=== PATIENT | female | born 1990 | race Asian ===

== ENCOUNTER → 2018-05-02 09:38 | Outpatient (CLI) | payer OTHER, SELFPAY ==
[2018-05-02 11:21] LABS: Add Manual Diff / Slide Review NO; Basophils Percent Auto 0.3 % (0-2); Eosinophils Percent Auto 1.1 % (2-4); Hematocrit 34.9 % (36-46); Hemoglobin 12.2 g/dL (12.0-16.0); Lymphocytes Percent Auto 16.5 % (25-40); Mean Corpuscular Hemoglobin 30.1 PG (26-34); Mean Corpuscular Volume 85.8 fL (80-100); Monocytes Percent Auto 7.3 % (3-14); Neutrophils Absolute Auto 5900 /uL (3000-5900); Neutrophils Percent Auto 74.8 % (50-75); Platelet Count 118 X10^3/uL (150-400); Red Blood Cell Count 4.06 X10^6/uL (4.0-5.2); Red Cell Distribution Width 12.2 % (11.6-14.8); White Blood Cell Count 7.9 X10^3/uL (4.5-11.0)
[2018-05-02 11:48] LABS: GTT (PREG) 1 Hour PP 50gm Dose 101 mg/dL (76-139)
== END ==
PROVIDERS: Family Provider Family Medicine; Visit Provider Family Medicine
DX: O21.9 Vomiting of pregnancy, unspecified (principal); Z3A.26 26 weeks gestation of pregnancy
CPT/HCPCS: 82950; 85025

== ENCOUNTER → 2018-06-26 09:19 | Outpatient (CLI) | payer OTHER, SELFPAY ==
[2018-06-27 14:31] LABS: Strep Grp B PCR NEG for Grp B Strep
== END ==
PROVIDERS: Family Provider Family Medicine; Visit Provider Family Medicine
DX: Z34.83 Encounter for supervision of other normal pregnancy, third trimester (principal)
CPT/HCPCS: 87653

== ENCOUNTER 2018-07-25 12:48 | Inpatient (IN) | payer OTHER, SELFPAY ==
--- NOTE | 2018-07-25 15:05 | PM.OBTRLD ---
[facility] Social History number of children: 1 household members: spouse, children and other pets and animals: No education level: high school occupational status: unemployed paradise/temple: Congregational Saint / Caodaism seatbelt use: always helmet use: Yes water heater temp set < 120 deg: Yes working smoke detector in home: Yes fire extinguisher in home: Yes carbon monox detector in home: Yes firearms in home: No Smoking Status: Never smoker alcohol intake: never during the past year weight has: remained stable well-balanced diet: daily or most days daily servings fruits/ve-4 caffeine: No eating out: 1-3 times/week frequency: 1-2 times per week duration: 45-60 minutes/day additional social history: Soda/pop beverage: Never
[2018-07-25 15:33] VITALS: BP 110/74
[2018-07-25 15:53] LABS: Add Manual Diff / Slide Review NO; Basophils Percent Auto 0.3 % (0-2); Eosinophils Percent Auto 0.7 % (2-4); Hematocrit 36.5 % (36-46); Hemoglobin 12.1 g/dL (12.0-16.0); Lymphocytes Percent Auto 12.5 % (25-40); Mean Corpuscular Hemoglobin 24.9 PG (26-34); Mean Corpuscular Volume 75.4 fL (80-100); Monocytes Percent Auto 7.4 % (3-14); Neutrophils Absolute Auto 8200 /uL (3000-5900); Neutrophils Percent Auto 79.1 % (50-75); Platelet Count 150 X10^3/uL (150-400); Red Blood Cell Count 4.85 X10^6/uL (4.0-5.2); Red Cell Distribution Width 16.2 % (11.6-14.8); White Blood Cell Count 10.4 X10^3/uL (4.5-11.0)
--- NOTE | 2018-07-25 16:52 | PM.OBHP.1 ---
OB HPI Date/Time Date of admission: 07/25/18 Date Patient Seen: 07/25/18 Time Patient Seen: 13:00 History of Present Condition Chief complaint: OBSERVATION OF LABOR : 2 Para: 1 Estimated Date of Delivery: 07/24/18 Estimated Gestational Age (weeks): 40w1d Narrative: Eusebia Germain is a 28 year old at 40w1d who presented in latent labor. The pt reports having contractions starting yesterday evening, increasing in frequency and intensity since then. No LOF or vaginal bleeding. Indications Indication for induction OB: maternal discomfort History of Present care: good care Dating criteria: LMP confirmed by 1st trimester US Ultrasounds: normal mid trimester US Obstetrical complications: none Medical complications: none Preadmission Labs Blood type: A (+) positive -: Antibody screen: negative, GBS status: negative, HBsAG: negative, HIV: negative and RPR/VDLR: negative -: Rubella: immune and Varicella: not immune HCT: 34.9 1 hr GTT: 101 Prior (ies) History: at 40 wks, 04/24/2012. 6lb female baby. Evaluation Evaluation Baseline heart rate: 135 Variability: Moderate (11-25) monitor accelerations: Present monitor decelerations: Absent Contraction Frequency (minutes): 6 Category of Tracing: I Cervical dilation (cm): 4 Cervical effacement (%): 80 station: -2 Laboratory results: Laboratory Tests 07/25/18 15:20 WBC 10.4 RBC 4.85 Hgb 12.1 Hct 36.5 MCV 75.4 L MCH 24.9 L MCHC 33.0 RDW 16.2 H Plt Count 150 Neut % (Auto) 79.1 H Lymph % (Auto) 12.5 L [place] % (Auto) 7.4 Eos % (Auto) 0.7 L Baso % (Auto) 0.3 Neut # (Auto) 8200 H Comments: After informed consent, AROM was performed with production of clear fluid. [facility] Surgical History No history of previous surgery (Resolved 12/2017) Social History number of children: 1 household members: spouse, children and other pets and animals: No education level: high school occupational status: unemployed paradise/yazidi: Caodaism Saint / Adventist seatbelt use: always helmet use: Yes water heater temp set < 120 deg: Yes working smoke detector in home: Yes fire extinguisher in home: Yes carbon monox detector in home: Yes firearms in home: No Smoking Status: Never smoker alcohol intake: never during the past year weight has: remained stable well-balanced diet: daily or most days daily servings fruits/ve-4 caffeine: No eating out: 1-3 times/week frequency: 1-2 times per week duration: 45-60 minutes/day additional social history: Soda/pop beverage: Never Meds Home Medications Medication Instructions Recorded Confirmed Type No Known Home Medications 07/25/18 07/25/18 History Allergies Allergy/AdvReac Type Severity Reaction Status Date / Time No Known Allergies Allergy Uncoded 06/12/18 11:06 Review of Systems Review of Systems All systems reviewed & are unremarkable except as noted in HPI and below Exam Vital Signs (past 8 hours): - 07/25/18 15:33 Blood Pressure 110/74 Narrative Exam Narrative: Gen: NAD, sitting comfortably on bench, appears well CV: RRR Resp: clear to auscultation bialterally Abd: soft, gravid, appropriately tender Ext: no edema Objective Labs Result Diagrams: 07/25/18 15:20 Labs: Laboratory Results - last 24 hr 07/25/18 15:20 WBC 10.4 RBC 4.85 Hgb 12.1 Hct 36.5 MCV 75.4 L MCH 24.9 L MCHC 33.0 RDW 16.2 H Plt Count 150 Neut % (Auto) 79.1 H Lymph % (Auto) 12.5 L [place] % (Auto) 7.4 Eos % (Auto) 0.7 L Baso % (Auto) 0.3 Neut # (Auto) 8200 H Assessment and Plan (1) 40 weeks gestation of : Current visit: Yes Status: Acute 28yo at 40w1d who presented in latent labor, with minimal 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 Due to maternal discomfort, AROM was performed to help progress labor with production of clear fluid. GBS negative, Rh positive. - Expectant management, anticipate - GBS negative, no antibiotics indicated - FHT reassuring - Epidural for pain control if pt desires
--- NOTE | 2018-07-25 16:56 | P.HPOB_ITS ---
OB HPI Date/Time Date of admission: 07/25/18 Date Patient Seen: 07/25/18 Time Patient Seen: 13:00 History of Present Condition Chief complaint: OBSERVATION OF LABOR : 2 Para: 1 Estimated Date of Delivery: 07/24/18 Estimated Gestational Age (weeks): 40w1d Narrative: Eusebia Germain is a 28 year old at 40w1d who presented in latent labor. The pt reports having contractions starting yesterday evening, increasing in frequency and intensity since then. No LOF or vaginal bleeding. Indications Indication for induction OB: maternal discomfort History of Present care: good care Dating criteria: LMP confirmed by 1st trimester US Ultrasounds: normal mid trimester US Obstetrical complications: none Medical complications: none Preadmission Labs Blood type: A (+) positive -: Antibody screen: negative, GBS status: negative, HBsAG: negative, HIV: negative and RPR/VDLR: negative -: Rubella: immune and Varicella: not immune HCT: 34.9 1 hr GTT: 101 Prior (ies) History: at 40 wks, 04/24/2012. 6lb female baby. Evaluation Evaluation Baseline heart rate: 135 Variability: Moderate (11-25) monitor accelerations: Present monitor decelerations: Absent Contraction Frequency (minutes): 6 Category of Tracing: I Cervical dilation (cm): 4 Cervical effacement (%): 80 station: -2 Laboratory results: Laboratory Tests 07/25/18 15:20 WBC 10.4 RBC 4.85 Hgb 12.1 Hct 36.5 MCV 75.4 L MCH 24.9 L MCHC 33.0 RDW 16.2 H Plt Count 150 Neut % (Auto) 79.1 H Lymph % (Auto) 12.5 L [place] % (Auto) 7.4 Eos % (Auto) 0.7 L Baso % (Auto) 0.3 Neut # (Auto) 8200 H Comments: After informed consent, AROM was performed with production of clear fluid. [facility] Surgical History No history of previous surgery (Resolved 12/2017) Social History number of children: 1 household members: spouse, children and other pets and animals: No education level: high school occupational status: unemployed paradise/amish: [employer] Saint / Baptist seatbelt use: always helmet use: Yes water heater temp set < 120 deg: Yes working smoke detector in home: Yes fire extinguisher in home: Yes carbon monox detector in home: Yes firearms in home: No Smoking Status: Never smoker alcohol intake: never during the past year weight has: remained stable well-balanced diet: daily or most days daily servings fruits/ve-4 caffeine: No eating out: 1-3 times/week frequency: 1-2 times per week duration: 45-60 minutes/day additional social history: Soda/pop beverage: Never Meds Home Medications Medication Instructions Recorded Confirmed Type No Known Home Medications 07/25/18 07/25/18 History Allergies Allergy/AdvReac Type Severity Reaction Status Date / Time No Known Allergies Allergy Uncoded 06/12/18 11:06 Review of Systems Review of Systems All systems reviewed & are unremarkable except as noted in HPI and below Exam Vital Signs (past 8 hours): - 07/25/18 15:33 Blood Pressure 110/74 Narrative Exam Narrative: Gen: NAD, sitting comfortably on bench, appears well CV: RRR Resp: clear to auscultation bialterally Abd: soft, gravid, appropriately tender Ext: no edema Objective Labs Result Diagrams: 07/25/18 15:20 Labs: Laboratory Results - last 24 hr 07/25/18 15:20 WBC 10.4 RBC 4.85 Hgb 12.1 Hct 36.5 MCV 75.4 L MCH 24.9 L MCHC 33.0 RDW 16.2 H Plt Count 150 Neut % (Auto) 79.1 H Lymph % (Auto) 12.5 L [place] % (Auto) 7.4 Eos % (Auto) 0.7 L Baso % (Auto) 0.3 Neut # (Auto) 8200 H Assessment and Plan (1) 40 weeks gestation of : Current visit: Yes Status: Acute 28yo at 40w1d who presented in latent labor, with minimal cervical change of address clerk several hours. Due to maternal discomfort, AROM was performed to help progress labor with production of clear fluid. GBS negative, Rh positive. - Expectant management, anticipate - GBS negative, no antibiotics indicated - FHT reassuring - Epidural for pain control if pt desires
[2018-07-25] MEDS: LACTATED RINGERS 1,000 ML 999 ML IV (17:35)
[2018-07-25] MEDS: LACTATED RINGERS 1,000 ML 125 ML IV (18:36)
--- NOTE | 2018-07-25 19:41 | P.PCNOB_ITS ---
Delivery date: 07/25/18 Intrapartal events: None Induction method: AROM Delivery monitor: external FHT Route of delivery: Episiotomy description: None Laceration description: Perineal - 2nd Degree Delivery repair: chromic Estimated blood loss (mL): 250 Anesthesia type: Epidural Narrative: PROCEDURE: at 40w1d presented in latent labor and was admitted to Labor and Delivery. AROM was performed with production of clear fluid. The patient progressed through the 1st stage over 2.5 hours. Pain was controlled with an epidural. The patient progressed through the 2nd stage over 30 minutes and delivered a viable female with APGARs 8/9 at 19:13 via . The perineum and vagina were inspected with small 2nd degree laceration repaired with 2-O Chromic. PREPROCEDURE DIAGNOSIS: Intrauterine at 40w1d GBS negative RH positive POSTPROCEDURE DIAGNOSIS: Intrauterine at 40w1d, delivered Same as preprocedure ROM APPEARANCE: Clear BABY A WEIGHT: [id number] BABY A NUCHAL CORD: x1, reduced at perineum PLACENTA DELIVERY TIME: 19:18 PLACENTA APPEARANCE: Intact [place] Baby 1: gender: Female Presentation: vertex position: Right Occiput Anterior Placenta delivery description: Spontaneous cord vessel description: 3 Vessels score (1 min): 8 score (5 min): 9 Plan for aftercare: Normal care support
[2018-07-25] MEDS: IBUPROFEN 600 MG TABLET PO (20:40)
[2018-07-25] MEDS: DERMOPLAST SPRAY 20% 60 ML 1 SPRAY TOP (23:45)
[2018-07-26] MEDS: OXYCODONE/ACETAMINOPHEN 5/325 TABLET 1 TAB PO ×2 (01:49→18:40)
--- NOTE | 2018-07-26 08:44 | P.DS_ITS ---
Discharge Providers Date of admission: 07/25/18 12:48 Consults: 07/25/18 20:15 Consult to Bottom Stop Attacher Routine Comment: Discharge provider: Gingre Smith MD Summary Date Patient Seen: 07/26/18 Time Patient Seen: 08:00 Hospital Course: The patient was admitted in latent labor with minimal cervical change. AROM was performed with production of clear fluid. The patient then progressed rapidly. She received an epidural for pain control. She had a spontaneous vaginal delivery of a 6 lb 14 oz viable baby girl at 7:13 p.m. on 07/25/2018. A small 2nd degree laceration was then repaired. , there were no complications. The patient was voiding, ambulating, and passing flatus without difficulty at the time of discharge. Her lochia was decreasing appropriately. Her pain was adequately controlled. She was breast feeding with good latch. Patient will follow up in clinic in 6 weeks for her check. She is undecided regarding control. Peripartum Data Delivery Method: Natural Vaginal Laceration description: Perineal - 2nd Degree Episiotomy description: None Procedures: Spontaneous vaginal delivery complications: none Discharge Diagnosis (1) 40 weeks gestation of : Status: Acute (2) (spontaneous vaginal delivery): Status: Acute Status at Discharge Functional status at discharge: independent ambulation Overall status at discharge: patient is progressing back to baseline Time Spent with Patient Total time spent providing and/or coordinating discharge services: Greater than 30 minutes Specific discharge activities: No intercourse for 6 weeks Objective Labs Result Diagrams: 07/25/18 15:20 Labs: Laboratory Results - last 24 hr 07/25/18 07/25/18 15:20 15:20 WBC 10.4 RBC 4.85 Hgb 12.1 Hct 36.5 MCV 75.4 L MCH 24.9 L MCHC 33.0 RDW 16.2 H Plt Count 150 Neut % (Auto) 79.1 H Lymph % (Auto) 12.5 L [place] % (Auto) 7.4 Eos % (Auto) 0.7 L Baso % (Auto) 0.3 Neut # (Auto) 8200 H Blood Type A Positive Antibody Screen Negative Discharge Plan Discharge Plan Patient Disposition: Home Discharge Med Rec/Prescriptions Prescriptions: New acetaminophen 325 mg Tablet 650 mg PO Q6HR PRN (Reason: Pain, Mild (1-3)) Qty: 30 RF: 0 benzocaine-menthol [Dermoplast (with menthol)] 20-0.5 % Aerosol 1 spray Topical Q1HR PRN (Reason: perineal pain) Qty: 15 RF: 0 ibuprofen 600 mg Tablet 600 mg PO Q6HR PRN (Reason: Pain, Mild (1-3)) Qty: 30 RF: 0 docusate sodium 250 mg Capsule 250 mg PO DAILY Qty: 30 RF: 0 lanolin [Epi-D-Ebxrhs] Cream 1 applic Topical PRN PRN (Reason: Tenderness) Qty: 15 RF: 0 [id number] [Prenatabs Rx] 29 mg iron- 1 mg Tablet 1 tab PO DAILY Qty: 30 RF: 0 Follow up/Referrals: Ginger Smith MD [Family Provider] - 6 Weeks Provider Discharge Instructions Diet: Regular Activity: No intercourse for 6 weeks Skin/Wound/Dressing Care Report to your healthcare provider any signs of infection, such as:: chills, fever, increased pain and unusual drainage Visit Report/Discharge Packet Instructions: DI for Labor and Delivery, Vaginal Discharge Data Attending Provider: Ginger Smith Admit Date/Time: 07/25/18 12:48
[2018-07-26] MEDS: DOCUSATE 250 MG CAPSULE PO (09:30)
[2018-07-26] MEDS: PRENATAL VIT,CALC/IRON/FOLIC 1 TABLET 1 TAB PO (09:30)
[2018-07-26] MEDS: IBUPROFEN 600 MG TABLET PO (15:36)
[2018-07-26 17:57] VITALS: BP 101/61; PULSE 76; RESP 16; TEMP 37.3
== END 2018-07-26 19:05 | disposition home or self-care (01) | DRG 775 ==
PROVIDERS: Admitting Provider Family Medicine; Family Provider Family Medicine; Visit Provider Family Medicine
DX: O75.81 Maternal exhaustion complicating labor and delivery (principal); Z3A.40 40 weeks gestation of pregnancy; Z37.0 Single live birth; O69.81X0 Labor and delivery complicated by cord around neck, without compression, not applicable or unspecified; O70.1 Second degree perineal laceration during delivery
CPT/HCPCS: 01967; 59050; 59400; 85025; 86850; 86900; 86901; G0379; J3010

== ENCOUNTER → 2022-12-19 14:00 | Outpatient (CLI) | payer OTHER, SELFPAY ==
[2022-12-20 11:33] LABS: Strep Grp B PCR NEG for Grp B Strep
== END ==
PROVIDERS: Family Provider Family Medicine; Visit Provider Obstetrics & Gynecology
DX: Z34.83 Encounter for supervision of other normal pregnancy, third trimester (principal); Z3A.36 36 weeks gestation of pregnancy
CPT/HCPCS: 87653

== ENCOUNTER → 2022-12-19 14:04 | Outpatient (CLI) | payer OTHER, SELFPAY ==
[2022-12-19 14:37] LABS: Add Manual Diff / Slide Review NO; Basophils Absolute Auto 0 /uL (0-100); Basophils Percent Auto 0.3 % (0-2); Eosinophils Absolute Auto 100 /uL (0-450); Eosinophils Percent Auto 0.9 % (2-4); Hematocrit 34.8 % (36-46); Hemoglobin 11.4 g/dL (12.0-16.0); Lymphocytes Absolute Auto 1200 /uL (1100-4500); Lymphocytes Percent Auto 15.7 % (25-40); Mean Corpuscular HGB Conc 32.7 % (30-36); Mean Corpuscular Hemoglobin 24.2 PG (26-34); Mean Corpuscular Volume 73.9 fL (80-100); Monocytes Absolute Auto 600 /uL (0-900); Monocytes Percent Auto 7.8 % (3-14); Neutrophils Absolute Auto 5900 /uL (1500-7000); Neutrophils Percent Auto 75.3 % (50-75); Platelet Count 129 X10^3/uL (150-400); Red Blood Cell Count 4.71 X10^6/uL (4.0-5.2); Red Cell Distribution Width 17.1 % (11.6-14.8); White Blood Cell Count 7.8 X10^3/uL (4.5-11.0)
--- NOTE | 2023-01-08 22:00 | PM.CALLCOV.1 ---
Call Coverage Note Note Date of Patient Contact: 01/08/23 Time of Patient Contact: 22:00 Narrative of Care Provided: Marciano called in for Eusebia to report that she's been having contractions all day. Now they are every 5 minutes lasting for 10 seconds. Baby moving well and denies loss of fluid. After discussion, will wait at home longer.
== END ==
PROVIDERS: Family Provider Family Medicine; Referring Provider Obstetrics & Gynecology; Visit Provider Obstetrics & Gynecology
DX: O99.119 Other diseases of the blood and blood-forming organs and certain disorders involving the immune mechanism complicating pregnancy, unspecified trimester (principal); D69.6 Thrombocytopenia, unspecified; Z3A.36 36 weeks gestation of pregnancy
CPT/HCPCS: 36415; 85025; 87653

== ENCOUNTER 2023-01-09 03:37 | Inpatient (IN) | payer OTHER, SELFPAY ==
--- NOTE | 2023-01-09 04:10 | PM.OBHP.IH.1 ---
OB HPI Date/Time Date of admission: 01/09/23 Date Patient Seen: 01/09/23 Time Patient Seen: 04:00 History of Present Condition Chief complaint: LABOR LINDSEY Calculator Estimated Delivery Date Method Current WG Current Estimate 01/12/23 Ultrasound #1 39w 4d Other Estimates 01/22/23 LMP (Certain) 38w 1d 01/12/23 Manual 39w 4d Estimated Gestational Age (weeks): 39 : 3 Para: 2 Narrative: Eusebia has been laboring at home for a while, now things are stronger, so she wanted to come in for evaluation. Excited to meet her son and NOT be in labor any more. Thinks he's bigger than his sisters - they were each 6 lb babies. care: good care, initiated at week # (11), number of visits (10) and pounds weight gain (38) Dating criteria OB: based on 1st trimester US only Ultrasounds: normal 1st trimester US and normal mid trimester US Abnormal ultrasound findings: Transferred in late to OB; had only 4 visits here but delivered her last baby here. Obstetrical complications: gestational diabetes (A1) Medical complications OB: other (depression) Preadmission Labs Last OB Lab Results: Blood Type A Positive 07/25/18 15:20 Antibody Screen Negative 07/25/18 15:20 Hematocrit 34.8 % (36-46) L 12/19/22 14:11 Hemoglobin 11.4 g/dL (12.0-16.0) L 12/19/22 14:11 Hepatitis B Surface Antigen NEGATIVE S/C (NEGATIVE-) 01/01/18 11:42 Hepatitis C Antibody NEGATIVE S/C (NEGATIVE-) 01/01/18 11:42 Varicella-Zoster IgG Antibody < 135.00 Index (< 135.00-) 01/01/18 11:42 Glucose 1 Hour 101 mg/dL (76-139) 05/02/18 10:46 Group B Streptococcus (PCR) Neg for grp b strep 12/19/22 14:00 Prior (ies) Past Pregnancies Del. Date GA/Weeks Labor Lgth Wt Sex Route Outcome Anesthesia Place Delv Breastfeed Preg Comp Name 04/24/12 38 8 2.863 kg Female vaginal live - full term [place] 18 months none Claudette Huggins 07/25/18 40 6 2.722 kg Female vaginal live - full term epidural IH 1 month (supply dried out) none Brigitte Evaluation Evaluation Baseline heart rate: 125 Variability: Moderate (11-25) monitor accelerations: Present Monitor Decelerations: Absent Contraction Frequency (minutes): 3 Uterine Contraction Intensity: Moderate Category of Tracing: Reactive Status: Category l Dilation (cm): 4 Effacement (%): 90 Dilation: 3-4 cm Effacement: >/=80% station: -2 Position of cervix: mid Consistency: soft Rojas score: 9 PFSH Medical History (Updated 01/08/23 @ 15:59 by Sobia Gutiérrez MD) Depression Surgical History (Updated 10/05/22 @ 10:14 by Emmy Weber RN) [place] teeth extracted Social History marital status: number of children: 2 household members: spouse, children and other lives independently: Yes housing: house pets and animals: Yes education level: high school occupational status: unemployed current occupational exposures/hazards: No paradise/worship: [employer] / Anabaptism special paradise needs: No travel history: recent (Domestic move in 3rd trimester) and over 6 months ago seatbelt use: always helmet use: Yes water heater temp set < 120 deg: Yes working smoke detector in home: Yes fire extinguisher in home: Yes carbon monox detector in home: Yes firearms in home: No do you feel safe at home: Yes Smoking Status: Never smoker second hand exposure: No alcohol intake: never substance use type: does not use during the past year weight has: remained stable well-balanced diet: daily or most days daily servings fruits/ve-4 caffeine: No eating out: 1-3 times/week Type(s) of exercise: none frequency: 1-2 times per week duration: 45-60 minutes/day additional social history: Soda/pop beverage: Never Meds Home Medications and Allergies Home Medications Medication Instructions Recorded Confirmed Type vitamin 1 tab PO DAILY #30 tabs 07/26/18 01/03/23 Rx no.76-iron,carbonyl 29 mg iron-folic acid 1 mg tablet (Prenatabs Rx) escitalopram oxalate 20 mg tablet 20 mg PO DAILY 10/05/22 01/03/23 History (Lexapro) famotidine 10 mg tablet (Pepcid AC) 10 mg PO DAILY 10/05/22 01/03/23 History ondansetron 4 mg disintegrating 4 mg PO Q6H PRN 10/05/22 01/03/23 History tablet pyridoxine (vitamin B6) 100 mg 100 mg PO DAILY 10/05/22 01/03/23 History tablet Allergies Allergy/AdvReac Type Severity Reaction Status Date / Time No Known Drug Allergies Allergy Verified 01/03/23 09:44 Review of Systems Review of Systems Narrative: negative except as mentioned in HPI OB Exam Vital signs Blood Pressure: 120/77 Pulse Rate: 96 Respiratory Rate: 18 Temperature: 35.9 F HENMT Head: normal to inspection and normocephalic Eyes General: appearance normal, both eyes and all related structures Resp Effort & Inspection: normal respiratory effort and able to speak in complete sentences Cardio Rate: regular rate Rhythm: regular rhythm Extremities Lower extremity: Yes normal to inspection; No edema GI Other: Gravid, EFW 7 lbs External Female Exam: Yes normal external appearance Presentation: vertex Estimated Weight (lbs): 7 Amniotic Fluid: other (intact membranes) Other: Bulging bag felt on exam. Assessment and Plan Assessment and Plan Assessment and Plan narrative: 32 year old at 39w4d FHR Cat 1 GBS neg Rh positive Early labor Plan: Admit to L&D. Epidural as desired Typical admission labs and IV in place Anticipate Time Spent with Patient Total time spent with greater than 50% in coordination of care (as documented) at patient's floor/unit and/or counseling patient:: 15-24 minutes
[2023-01-09 04:26] LABS: Add Manual Diff / Slide Review NO; Basophils Absolute Auto 0 /uL (0-100); Basophils Percent Auto 0.4 % (0-2); Eosinophils Absolute Auto 100 /uL (0-450); Eosinophils Percent Auto 0.6 % (2-4); Hematocrit 34.8 % (36-46); Hemoglobin 11.4 g/dL (12.0-16.0); Lymphocytes Absolute Auto 1700 /uL (1100-4500); Lymphocytes Percent Auto 16.5 % (25-40); Mean Corpuscular HGB Conc 32.7 % (30-36); Mean Corpuscular Hemoglobin 23.4 PG (26-34); Mean Corpuscular Volume 71.7 fL (80-100); Monocytes Absolute Auto 700 /uL (0-900); Monocytes Percent Auto 7.2 % (3-14); Neutrophils Absolute Auto 7600 /uL (1500-7000); Neutrophils Percent Auto 75.3 % (50-75); Platelet Count 124 X10^3/uL (150-400); Red Blood Cell Count 4.86 X10^6/uL (4.0-5.2); Red Cell Distribution Width 18.2 % (11.6-14.8); White Blood Cell Count 10.1 X10^3/uL (4.5-11.0)
[2023-01-09 04:29] VITALS: BP 120/77; PULSE 96; RESP 18; TEMP 2.2; TEMP 35.9
[2023-01-09 04:32] VITALS: BP 120/77
[2023-01-09] MEDS: ePHEDrine 50 MG/ML VIAL IV (08:38)
--- NOTE | 2023-01-09 10:08 | PM.OBPNLAB ---
Date/Time Date Patient Seen: 01/09/23 Time Patient Seen: 06:30 Pain Control Pain control: epidural Pelvic Exam Effacement (%): 90 station: -2 Amniotic membrane status: Intact Contractions Date/Time contractions began: Contractions started early Monday. Increased in intensity Monday, and became long and strong in the early hours. Contractions on admission: regular Monitor mode: External Contraction frequency (min): 3 Contraction duration (min): 60 Contraction pattern: Regular Contraction intensity: Moderate Status status: Category l Heart Rate Baseline: 130 Monitor Accelerations: Present Monitor Decelerations: Absent Monitor Variability: Moderate Assessment and Plan Assessment: active labor Plan: continuous present management Comments: in active labor GBS neg Rh pos FHR Cat 1, green Plan: AROM for clear fluid at 0746 Begin pushing when Eusebia feels pressure Anticipate
--- NOTE | 2023-01-09 10:17 | PM.OBPRVD ---
Events: Gestational Diabetes Labor & Delivery Delivery date: 01/09/23 Intrapartal Events: Deceleration Delivery augmentation: rupture of membranes Delivery monitor: external FHT Route of delivery: Episiotomy description: None L&D Laceration Description: None Quantitative Blood Loss: 255 Anesthesia Type: Epidural Complications: none Narrative: Eusebia felt the urge to push shortly after SVE of 9 cm. Requested AROM, which was done at 0746. Clear fluid. Pressure became more intense and she was feeling rectal pressure, which she did not enjoy, so anesthesia came and gave an add to improve her comfort. She pushed in R sidelying, L sidelying and then on her back to eventually deliver the vertex OA between pushes. Shoulders were transverse, and with gentle traction and maternal effort, delivered into the waiting hands of Marciano, who placed a vigorous baby boy onto Eusebia's abdomen. Apgars 7/9. Breathing but not crying at 1 minute. Cord clamped by CNZhen and cut approx 10 minutes later by big sister, Claudette. Spontaneous delivery of placenta with one push. Perineum inspected and found to be intact. Bleeding moderate; QBL 255 mL. Eusebia and Marciano are thrilled to meet their son, Rahul. Birthweight pending at the time of this note. Eusebia and both mom and baby are stable. Baby 1: gender: Male Presentation: vertex Position: Right Occiput Transverse Placenta delivery description: Spontaneous Cord Vessel Description: 3 Vessels score (1 min): 8 score (5 min): 9 Plan for aftercare: Routine care
[2023-01-09] MEDS: IBUPROFEN 600 MG TABLET PO ×3 (11:20→23:38)
[2023-01-09] MEDS: ACETAMINOPHEN 325 MG TABLET 650 MG PO ×3 (11:20→23:38)
[2023-01-09] MEDS: ESCITALOPRAM 10 MG TABLET 20 MG PO (11:20)
[2023-01-10 02:32] VITALS: BP 106/72; PULSE 102; RESP 17; TEMP 36.7
[2023-01-10] MEDS: ACETAMINOPHEN 325 MG TABLET 650 MG PO (05:43)
[2023-01-10] MEDS: IBUPROFEN 600 MG TABLET PO (05:43)
[2023-01-10] MEDS: PRENATAL VIT,CALC/IRON/FOLIC 1 TABLET 1 TAB PO (09:40)
[2023-01-10] MEDS: ESCITALOPRAM 10 MG TABLET 20 MG PO (10:53)
== END 2023-01-10 12:00 | disposition home or self-care (01) | DRG 807 ==
PROVIDERS: Admitting Provider Advanced Practice Midwife; Family Provider Family Medicine; Referring Provider Advanced Practice Midwife; Visit Provider Advanced Practice Midwife
DX: O24.420 Gestational diabetes mellitus in childbirth, diet controlled (principal); O76 Abnormality in fetal heart rate and rhythm complicating labor and delivery; Z37.0 Single live birth; Z3A.39 39 weeks gestation of pregnancy; O99.344 Other mental disorders complicating childbirth; F32.A Depression, unspecified
CPT/HCPCS: 36415; 59050; 85025; 86850; 86900; 86901; G0379

== ENCOUNTER → 2024-01-19 16:54 | Outpatient (CLI) | payer OTHER, SELFPAY ==
[2024-01-19 17:18] LABS: Add Manual Diff / Slide Review NO; Basophils Absolute Auto 0 /uL (0-100); Basophils Percent Auto 0.7 % (0-2); Eosinophils Absolute Auto 100 /uL (0-450); Eosinophils Percent Auto 1.9 % (2-4); Hematocrit 38.9 % (36-46); Hemoglobin 12.9 g/dL (12.0-16.0); Lymphocytes Absolute Auto 1800 /uL (1100-4500); Lymphocytes Percent Auto 33.6 % (25-40); Mean Corpuscular HGB Conc 33.2 % (30-36); Mean Corpuscular Hemoglobin 26.3 PG (26-34); Monocytes Absolute Auto 300 /uL (0-900); Monocytes Percent Auto 5.5 % (3-14); Neutrophils Absolute Auto 3100 /uL (1500-7000); Neutrophils Percent Auto 58.3 % (50-75); Platelet Count 156 X10^3/uL (150-400); Red Blood Cell Count 4.92 X10^6/uL (4.0-5.2); White Blood Cell Count 5.3 X10^3/uL (4.5-11.0)
[2024-01-19 17:48] LABS: Hemoglobin A1C% w Est Avg Glu 4.9 % (4.0-6.0)
[2024-01-19 17:49] LABS: Alanine Aminotransferase 13 IU/L (<35); Albumin Globulin Ratio 1.3 (1.0-2.8); Alkaline Phosphatase 44 U/L (38-126); Aspartate Aminotransferase 19 IU/L (14-36); BUN Creatinine Ratio 30.4 (6-22); Bilirubin Total 0.4 mg/dL (0.2-1.3); Blood Urea Nitrogen 21 mg/dL (7-17); Carbon Dioxide 22 mmol/L (22-32); Chloride 107 mmol/L (98-107); Cholesterol 146 mg/dL (140-199); Estimated Glomerular Filt Rate > 60 mL/min (>60); Globulin 3.2 g/dL (1.7-4.1); Glucose 92 mg/dL (70-100); HDL Cholesterol 41 mg/dL (40-60); HEMOLYSIS < 15 (0-50); LDL Cholesterol Calculated 91 mg/dL (<100); Potassium 3.6 mmol/L (3.4-5.1); Sodium 138 mmol/L (137-145); Total Protein 7.2 g/dL (6.3-8.2); Triglycerides 69 mg/dL (35-150)
[2024-01-19 18:18] LABS: Ferritin 7 ng/mL (6-137)
== END ==
PROVIDERS: Family Provider Family Medicine; PCP Family Medicine; Referring Provider Family Medicine; Visit Provider Family Medicine
DX: Z00.00 Encounter for general adult medical examination without abnormal findings (principal); O24.419 Gestational diabetes mellitus in pregnancy, unspecified control; D50.9 Iron deficiency anemia, unspecified; R10.9 Unspecified abdominal pain
CPT/HCPCS: 36415; 80053; 80061; 82728; 83036; 85025

== ENCOUNTER 2024-01-26 16:44 | Emergency (ER) | payer OTHER, SELFPAY ==
[2024-01-26 16:45] VITALS: BP 117/77; PULSE 79; RESP 16; TEMP 36.6; O2SAT 100; BMI 28.1
--- NOTE | 2024-01-26 17:27 | ED_ITS ---
<Statement entered by Atif Arango MD - 01/26/24 18:13> I was available for consultation for this patient while they were in the ER but not consulted. My review of this note is my first interaction with this patient. HPI - Back Pain/Injury General Chief Complaint: Back Pain/Injury Stated Complaint: back pain Time Seen by Provider: 01/26/24 16:55 Source: patient History of Present Illness HPI Narrative: This is a 33-year-old female presents emergency department due to back pain, acute on chronic onset earlier this morning. 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 Reports some tingling and ?warm sensation? to her left upper extremity. Denies any severe numbness or weakness. States that she also has chronic paresthesias down her bilateral lower extremities. No injuries. No fevers. No saddle paresthesias. No urinary or bowel incontinence. Related Data Previous Rx's Medication Instructions Recorded escitalopram oxalate 20 mg tablet 20 mg PO DAILY #90 tabs 11/10/23 (Lexapro) norgestimate 0.25 mg-ethinyl 1 tab PO DAILY #28 tabs 11/10/23 estradiol 35 mcg tablet cyclobenzaprine 10 mg tablet 10 mg PO TID #30 tabs 01/26/24 Allergies Allergy/AdvReac Type Severity Reaction Status Date / Time No Known Drug Allergies Allergy Verified 01/19/24 16:01 Review of Systems Review of Systems Narrative: GENERAL: Denies chills, fatigue, malaise, fever, sweats. HEENT: Denies sinus pain, ear pain, sore throat, difficulty swallowing, dizziness. RESPIRATORY: Denies dyspnea, cough, wheezing, hemoptysis, sputum. CARDIOVASCULAR: Denies chest pain, palpitations, orthopnea, edema, GASTROINTESTINAL: Denies nausea, vomiting, abdominal pain, diarrhea, constipation, melena. : Denies dysuria, frequency, incontinence, hematuria, urinary retention. MUSCULOSKELETAL: Reports back pain denies weakness, joint pain, or bony pain SKIN: Denies rash, skin lesions, or other NEUROLOGIC: Reports occasional paresthesias to the left upper extremity Denies weakness, headache, numbness, change in speech, confusion, seizures, i ncoordination. PSYCHIATRIC: No concerning psychosocial issues. 12 point review of systems is negative except for those stated above Patient History Medical History (Updated 01/26/24 @ 17:59 by Salo Davis PA-C) Vision disorder PTSD (post-traumatic stress disorder) Anxiety Insomnia Gestational diabetes (11/22/22) Gestational thrombocytopenia (10/24/22) Depression Surgical History (Updated 12/19/23 @ 18:19 by Elma Quintero) Vaginal delivery (~01/09/23) [place] teeth extracted Social History marital status: number of children: 2 household members: spouse, children and other lives independently: Yes housing: house pets and animals: Yes education level: high school occupational status: unemployed current occupational exposures/hazards: No paradise/voodoo: 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 paradise needs: No travel history: recent (Domestic move in 3rd trimester) and over 6 months ago seatbelt use: always helmet use: Yes water heater temp set < 120 deg: Yes working smoke detector in home: Yes fire extinguisher in home: Yes carbon monox detector in home: Yes firearms in home: No do you feel safe at home: Yes Smoking Status: Never smoker second hand exposure: No alcohol intake: never substance use type: does not use during the past year weight has: remained stable well-balanced diet: daily or most days daily servings fruits/ve-4 caffeine: No eating out: 1-3 times/week Type(s) of exercise: none frequency: 1-2 times per week duration: 45-60 minutes/day additional social history: Soda/pop beverage: Never Smoking Status: Never smoker Substance Use Type: does not use Exam Narrative Exam Narrative: GENERAL: Well-developed patient, in mild distress. HEAD: Atraumatic. Normocephalic. EYES: Pupils equal round and reactive. Extraocular motions intact. No scleral icterus. No injection or drainage. ENT: Nose without bleeding, purulent drainage. Throat without erythema, tonsillar hypertrophy or exudate. Airway patent. NECK: Trachea midline. Non tender EXTREMITIES: No edema or joint tenderness. No numbness or weakness noted throughout the upper or lower extremities. NEURO: AOx3. SKIN: No rash or erythema of visible areas Back: No significant tenderness to palpation. Initial Vital Signs Initial Vital Signs: Vital Signs Temperature 98 F 01/26/24 16:45 Pulse Rate 79 01/26/24 16:45 Respiratory Rate 16 01/26/24 16:45 Blood Pressure 117/77 01/26/24 16:45 Pulse Oximetry 100 01/26/24 16:45 Oxygen Delivery Method Room Air 01/26/24 16:45 Course Orders Ordered: Discontinued Medications Ketorolac Tromethamine (Ketorolac 30 Mg/Ml Vial) 15 mg IM NOW ONE Stop: 01/26/24 17:51 Last Admin: 01/26/24 17:59 Dose: 15 mg Documented By: RB Vital Signs Vital signs: Vital Signs - 8 hr 01/26/24 16:45 01/26/24 18:05 Temperature 98 F 98.2 F Pulse Rate 79 74 Respiratory Rate 16 18 Blood Pressure 117/77 112/73 Pulse Oximetry 100 100 Oxygen Delivery Method Room Air Room Air MDM - Back Pain/Injury MDM Narrative Medical decision making narrative: ED course: This is a 33-year-old female presenting to the emergency department due to acute on chronic back pain with some mild paresthesias reported to the left upper extremity. No emergent symptoms such as saddle paresthesias, urinary or bowel incontinence, or fevers. Due recommend her following up with the primary care provider for possible advanced imaging due to chronic paresthesias reported. Toradol given today the emergency department as well as prescription for muscle relaxants. CC: Back pain Complicating co-morbidities: None Data collected from: Previous notes Medical records reviewed: Was last seen by her primary care provider a week ago for a physical exam. Takes citalopram. No pertinent medical history. Differential considered, but not limited to: Spinal cord compromise, muscular injury, nerve impingement Exam documented above, pertinent findings include: No significant weakness or numbness noted on exam. No significant tenderness to palpation. Lab Test results independently reviewed as above. Pertinent findings: None obtained Imaging studies independently reviewed: None obtained Scores Used: None MIPS Elements: None Consultations: None Treatments: IM Toradol here in the emergency department Re-evaluations: None Discussion: Discussed plan with the patient was comfortable with the plan Diagnosis: Muscular back pain Disposition: see below, along with detailed discharge instructions that have been reviewed with patient as well as indications for ED re-evaluation and additional outpatient follow up Discharge Plan Departure Patient Disposition: Home Clinical Impression: Back pain Instructions: DI for Back Pain With Sciatica Activity Restrictions/Additional Instructions: Thank you for coming to the [facility] Emergency Department today. The medicine prescribed and give me today should help. I do strongly recommended he follow up with the primary care provider for possible MRI to further evaluate the tingling your feeling. The muscle relaxants may make you feel a bit woozy, please do not take before driving or operating heavy [employer]. Please return to the emergency department if you develop any significant weakness, significant pain, or any other concerning signs or symptoms. I hope you feel better soon. Please follow up with your primary care provider within a week if your symptoms continue. If you do not have a primary care provider please contact the [facility] Resource line at [phone]. They will ask some questions about your medical history and help you get set up with a provider in the community. Prescriptions: New cyclobenzaprine 10 mg tablet 10 mg PO TID Qty: 30 0RF No Action escitalopram oxalate [Lexapro] 20 mg tablet 20 mg PO DAILY Qty: 90 3RF norgestimate-ethinyl estradiol 0.25-35 mg-mcg tablet 1 tab PO DAILY Qty: 28 11RF Referrals: Haily Valladares DO [Primary Care Provider] - Stand Alone Forms: Patient Portal/API
[2024-01-26] MEDS: KETOROLAC 30 MG/ML VIAL 15 MG IM (17:59)
[2024-01-26 18:05] VITALS: BP 112/73; PULSE 74; RESP 18; TEMP 36.8; O2SAT 100
== END 2024-01-26 18:09 | disposition home or self-care (01) ==
PROVIDERS: Emergency Provider Physician Assistant Medical; Family Provider Family Medicine; PCP Family Medicine
DX: M54.9 Dorsalgia, unspecified (principal); G89.29 Other chronic pain
CPT/HCPCS: 96372; 99283; J1885

== ENCOUNTER → 2024-02-24 07:34 | Outpatient (CLI) | payer OTHER, SELFPAY ==
--- NOTE | 2024-02-24 | DI.MRI.S_ITS ---
PROCEDURE: MR LUMBAR SPINE WO CON INDICATIONS: Radiculopathy, lumbar region TECHNIQUE: Noncontrast sagittal T1 spin echo and T2 fast echo, sagittal STIR, and T2 fast spin echo through the lumbar spine. In cases with scoliosis, additional coronal T2 fast spin echo may be performed. COMPARISON: [facility] [place], [place], XR LUMBAR SPINE 2 OR 3 VIEWS, 02/13/2024, 13:57. FINDINGS: Image quality: Excellent. Alignment and Curvature: There is normal bony alignment. Bone Marrow: Marrow is of normal overall signal. No acute vertebral body compression fractures. Spinal Cord: Conus medullaris terminates at the L2-L3 level. Visualized cord demonstrates normal signal and size. Paraspinous Soft Tissues: No paravertebral masses. T12-L1: Normal appearance. L1-L2: Normal appearance. L2-L3: Normal appearance. L3-L4: Normal appearance. L4-L5: Minimal disc bulge. Mild facet hypertrophy. No canal stenosis or foraminal stenosis. L5-S1: Mild facet hypertrophy. No canal stenosis or foraminal stenosis. IMPRESSION: 1. Mild lower lumbar facet hypertrophy. 2. No canal stenosis or foraminal stenosis. Dictated by: Chris Abbott M.D. on 02/26/2024 at 8:06 Approved by: Chris Abbott M.D. on 02/26/2024 at 8:17
== END ==
PROVIDERS: Family Provider Family Medicine; PCP Family Medicine; Referring Provider Physical Medicine & Rehabilitation; Visit Provider Physical Medicine & Rehabilitation
DX: M47.26 Other spondylosis with radiculopathy, lumbar region (principal); M47.27 Other spondylosis with radiculopathy, lumbosacral region
CPT/HCPCS: 72148

== ENCOUNTER → 2025-03-12 13:36 | Outpatient (CLI) | payer OTHER, SELFPAY ==
[2025-03-12 15:38] LABS: Alanine Aminotransferase 13 IU/L (<35); Albumin 4.6 g/dL (3.5-5.0); Albumin Globulin Ratio 1.6 (1.0-2.8); Alkaline Phosphatase 49 U/L (38-126); Aspartate Aminotransferase 21 IU/L (14-36); BUN Creatinine Ratio 22.1 (6-22); Bilirubin Total 0.4 mg/dL (0.2-1.3); Blood Urea Nitrogen 15 mg/dL (7-17); Calcium 9.1 mg/dL (8.4-10.2); Carbon Dioxide 26 mmol/L (22-32); Chloride 106 mmol/L (98-107); Cholesterol 165 mg/dL (140-199); Estimated Glomerular Filt Rate > 60 mL/min (>60); Globulin 2.9 g/dL (1.7-4.1); Glucose 73 mg/dL (70-100); HDL Cholesterol 54 mg/dL (40-60); HEMOLYSIS < 15 (0-50); LDL Cholesterol Calculated 98 mg/dL (<100); Potassium 4.3 mmol/L (3.4-5.1); Sodium 141 mmol/L (137-145); Total Protein 7.5 g/dL (6.3-8.2); Triglycerides 65 mg/dL (35-150)
== END ==
LOC: LAB 13:37
PROVIDERS: Family Provider Family Medicine; PCP Family Medicine; Referring Provider Family Medicine; Visit Provider Family Medicine
DX: Z00.00 Encounter for general adult medical examination without abnormal findings (principal)
CPT/HCPCS: 36415; 80053; 80061